=== PATIENT | male | born 1980 | race Caucasian/White ===

== ENCOUNTER 2018-11-05 11:48 | Outpatient (CLI) | payer MEDICARE, MEDICAID | END 2018-11-05 23:59 | disposition home or self-care (01) | LOC: LAB 11:48 | PROVIDERS: ATTEND Specialist | DX: E10.65 Type 1 diabetes mellitus with hyperglycemia (principal); E10.21 Type 1 diabetes mellitus with diabetic nephropathy | CPT/HCPCS: 36415; 82947; 84681 ==